=== PATIENT | female | born 1935 | race Caucasian/White ===

== ENCOUNTER 2017-03-13 01:24 | Observation (INO) ==
--- NOTE | 2017-03-13 01:36 | Emergency Department Note ---
Disposition Clinical Impression: Lower gastrointestinal hemorrhage, Diverticulitis Disposition: Admitted As Inpatient Condition: Fair Referrals: NO,PCP [Primary Care Provider] - Time of Disposition: 02:54 (zion jackson) GI Bleed HPI - General Stated complaint: Rectal Bleeding Time Seen by Provider: 03/13/17 01:27 Source: patient Mode of arrival: ambulatory Limitations: no limitations Nursing Notes Reviewed: Yes Vital Signs Reviewed: Yes - History of Present Illness HPI Narrative: she had defecate states that she has been having some problems that she was sitting on the toilet swinging her legs pushing on her belly when she passed stool when she went right wrist she does admit then she seemed to calm down that recurred and that resolved. She is now is really no pain denies of shortness of breath chest pain chest pressure. Patient's cough hemoptysis or sputum production denies diarrhea melena hematochezia Patient tells me she recently stopped her medications of metoprolol and Cozaar because they were causing her to have a rash on her back she is also status post to be taking medications like warfarin but is not taking those either Pt Subjective Complaint: gross bloody stools Onset (ago): Just [employer] Consistency: intermittent Severity: mild Improves with: bowel movement Context: anticoagulant use Associated symptoms: Reports: abdominal pain, nausea, weakness. Denies: vomiting, epistaxis, fever, chills, headaches, loss of appetite, malaise, easy bruising, other bleeding source, shortness of breath, syncope/near-syncope Treatments Prior to Arrival: none - Related Data Home Medications Medication Instructions Recorded Confirmed Calcium Citrate/Vitamin D2 03/02/16 [Bayron-Citrate Plus Vitamin D Tab] Allergies Allergy/AdvReac Type Severity Reaction Status Date / Time losartan [From Cozaar] Allergy Rash Verified 03/13/17 02:52 metoprolol Allergy Rash Verified 03/13/17 02:52 ciprofloxacin AdvReac Gastrointestinal Verified 03/13/17 02:52 Upset All systems ED: reviewed and negative except as stated. Constitutional: Denies: fever, chills Eyes: Denies: eye pain ENT ED: Denies: ear pain, throat pain Cardiovascular: Denies: chest pain, paroxysmal nocturnal dyspnea Respiratory: Denies: dyspnea, wheezes Gastrointestinal: Reports: abdominal pain, nausea, constipation, hematochezia Genitourinary: Denies: urgency, dysuria, frequency Musculoskeletal: Denies: back pain Integumentary: Denies: abrasion Neurological: Denies: headache Psychiatric: Denies: anxiety Endocrine: Denies: fatigue Hematological/Lymphatic: Reports: easy bleeding Allergic/Immunologic: Denies: facial swelling Past Medical History - Past Medical History Attestation: Yes The following information was validated with the patient. Source: patient, old records reviewed, nursing notes reviewed Medical history: Reports: hypertension Surgical history: Reports: RAE/BSO - Social History Smoking Status: Never smoker Smokeless Tobacco Status: No Alcohol use: Reports: none Physical Exam - General Limitations: no limitations General appearance: alert, in no apparent distress, anxious - Head Head exam: atraumatic, normocephalic, normal inspection - Eye Eye exam: Present: normal appearance, PERRL, EOMI - ENT ENT exam: normal exam, normal oropharynx, mucous membranes moist, normal external ear exam - Neck Neck exam: Present: normal inspection, full ROM, trachea midline - Chest Chest inspection: Present: normal inspection, symmetric chest wall rise - Respiratory Respiratory exam: Present: normal lung sounds bilaterally - Cardiovascular Cardiovascular exam: Present: regular rate, normal rhythm, normal heart sounds - Abdominal Exam Abdominal exam: Present: soft, tenderness, normal bowel sounds. Absent: mass, pulsatile mass Abdominal tenderness: Present: suprapubic, mild - Rectal Exam Parts Consultant present during exam: Yes Rectal exam: Present: normal inspection, heme (+) stool - Female External Exam: Present: pt deferred Speculum Exam: Present: Pt Deferred - Extremities Exam Extremities exam: Present: normal inspection, full ROM, normal capillary refill. Absent: tenderness, joint swelling - Expanded Lower Extremity Exam Neurovascular/Tendon exam: Present: normal capillary refill, normal fine/light touch Gait: observed and normal - Back Exam Back exam: Present: normal inspection, full ROM. Absent: muscle spasm - Neurological Exam Neurological exam: Present: alert, oriented X3, CN II-XII intact, normal gait - Psychiatric Psychiatric exam: Present: normal affect, normal mood - Skin Skin exam: Present: warm, dry, intact, normal color Course Course Narrative: Patient examine labs x-ray obtained makes sure she did not have diverticular etiology or bowel obstruction has had bowel surgery awaiting results this time not wanting any pain medication Vital Signs Temperature 98.1 F 03/13/17 01:41 Pulse Rate 83 03/13/17 01:41 Respiratory Rate 18 03/13/17 01:41 Blood Pressure 166/88 03/13/17 01:41 O2 Sat by Pulse Oximetry 99 03/13/17 01:41 Temperature 98.1 F 03/13/17 01:46 Pulse Rate 83 03/13/17 01:46 Respiratory Rate 18 03/13/17 01:46 Blood Pressure 166/88 03/13/17 01:46 O2 Sat by Pulse Oximetry 99 03/13/17 01:46 Oxygen Delivery Oxygen Delivery Room Air GI Bleed - MDM Narrative Medical decision making narrative: Diverticular mass tumor or lesion - Differential Diagnosis Likely: hemorrhoids, gastritis, Lower gastrointestinal hemorrhage, coagulopathy - Medical Records Medical records reviewed: Yes I reviewed the patient's medical records. - Lab Data Lab results reviewed: Yes I reviewed the patient's lab results. - Radiology Data Radiology results reviewed: Yes I reviewed the patient's radiology results. Critical Care Time Critical Care Time: No
[2017-03-13] MEDS ORDERED: 0.9 % Sodium Chloride 1,000 ML IVC ONE (02:43)
[2017-03-13] MEDS ORDERED: MetroNIDAZOLE 500 MG/100 ML 500 MG/100 ML BAG IVPB ONE (02:43)
[2017-03-13] MEDS ORDERED: cefOXitin 1,000 MG in D5% in Water (Mini-Bag+) 100 ML IVPB ONE (02:49)
[2017-03-13 03:18] LABS: Basophils % 0.1 %; Eosinophils % 0.1 %; Hemoglobin 14.3 g/dL (11.5-15.4); Immature Granulocytes % 0.5 % (0-4); Lymphocytes # 0.5 K/mcL (0.6-4.6); Lymphocytes % 5.8 %; Mean Corpuscular HGB Conc 34.9 g/dL (31.6-35.5); Mean Corpuscular Hemoglobin 32.3 pg (28.0-33.3); Mean Corpuscular Volume 92.6 fL (83.0-100.0); Mean Platelet Volume 9.5 fL (9.4-12.4); Monocytes # 0.3 K/mcL (0.0-1.3); Monocytes % 3.2 %; Platelet Count 300 K/mcL (140-400); Red Blood Count 4.43 M/mcL (3.82-4.97); Red Cell Distribution Width 13.2 % (11.5-14.5); Segmented Neutrophils % 90.3 %
[2017-03-13 03:20] LABS: INR 1.3; Prothrombin Time 13.9 Seconds (9.4-12.1)
[2017-03-13 03:32] LABS: Alanine Aminotransferase 18 Units/L (0-55); Albumin 4.1 g/dL (3.5-5.0); Albumin/Globulin Ratio 1.4 (1.1-2.2); Alkaline Phosphatase 56 Units/L (38-126); Aspartate Amino Transferase 22 Units/L (5-34); BUN/Creatinine Ratio 18 (6-26); Bilirubin,Total 0.7 mg/dL (0.2-1.2); Blood Urea Nitrogen 12 mg/dL (7-20); Calcium 9.1 mg/dL (8.6-10.8); Carbon Dioxide 24 mEq/L (19-29); Chloride 97 mEq/L (98-109); Globulin 2.9 g/dL (2.4-3.5); Glucose 130 mg/dL (70-99); Osmolality,Calculated 280 (280-300); Potassium 3.6 mEq/L (3.5-4.5); Sodium 134 mEq/L (136-145); eGFR For African Americans > 60 (> 60); eGFR For Non-African Americans > 60 (> 60)
[2017-03-13] MEDS ORDERED: 0.9 % Sodium Chloride 1,000 ML IVC SCH (05:38)
[2017-03-13] MEDS ORDERED: Naloxone 0.4 MG/ML INJ IVP PRN (05:38)
[2017-03-13] MEDS ORDERED: Ondansetron 4 MG/2 ML VIAL IVP PRN (05:38)
[2017-03-13 07:25] VITALS: BP 186/81
--- NOTE | 2017-03-21 17:40 | Internal Med Progress Note ---
Date of Encounter: 03/21/17 Time of Encounter: 17:40 - Subjective Interval history: Patient left AMA before being seen by me. - Constitutional Vitals: Temp Pulse Resp BP Pulse Ox 98.5 F 75 16 186/81 97 03/13/17 07:23 03/13/17 07:23 03/13/17 07:23 03/13/17 07:23 03/13/17 07:23 Internal Medicine: Result - Labs CBC & Chem 7: 03/13/17 02:50 03/13/17 02:50 - ABG Interpretation ABG results: PT/INR, D-dimer PT 13.9 Seconds (9.4-12.1) H 03/13/17 02:50 Consult Discharge Plan - Plan
== END 2017-03-13 09:45 | disposition left against medical advice (07) ==
LOC: EMEROOPIK 01:24 → INPPIK 01:24
PROVIDERS: ADMIT Internal Medicine; ATTEND Internal Medicine